=== PATIENT | female | born 1935 | race Caucasian/White ===

== ENCOUNTER 2017-12-07 15:19 | Inpatient (IN) ==
[2017-12-07] MEDS ORDERED: 0.9 % SODIUM CHLORIDE 1,000 ML IV ONE ×2 (15:40→17:41)
[2017-12-07] MEDS ORDERED: IPRATROPIUM/ALBUTEROL 3 ML AMPUL.NEB NEB ONE ×2 (15:47→20:08)
--- NOTE | 2017-12-07 15:47 | Emergency Department Note ---
Weakness HPI - General Chief complaint: Weakness Stated complaint: increase weakness, moist cough, fever Time Seen by Provider: 12/07/17 15:33 Source: patient Mode of arrival: EMS Limitations: no limitations - History of Present Illness HPI Narrative: 79-year-old female presents with decreased level of consciousness, weakness, fever, and increasing cough. She has COPD and Parkinson's disease. She is usually on 2-1/2-3 L at home and is now satting around 9091 on 4 L. She was doing well last night and ate but then started to decline. She had a fever today and EMS states it was 101.8 when they took it. She has had a wet cough for a long time but it has gotten worse in the last couple of days. She has not had a flu shot and people around her have had the flu. She has not urinated today very much. She did not have any p.o. intake as well. She states she is not in pain. She has Parkinson's disease a cannot open her eyes so it is hard to assess if she can open her eyes on command. She is not diabetic and does not have a history of CHF. She is DNR/DNI and family would like comfort measures such as fluids and antibiotics if needed. She is usually a pivot transfer but today she was not able to stand on her own. She usually talks to you better and she has not verbalizing very well. - Related Data Home Medications Medication Instructions Recorded Confirmed Budesonide [Pulmicort] 0.5 mg NEB DAILY 12/07/17 12/07/17 Carbidopa/Levodopa [Sinemet 25-100 2 each PO QIDP 12/07/17 12/07/17 mg Tablet] Furosemide [Lasix] 20 mg PO DAILY 12/07/17 12/07/17 Gabapentin [Neurontin] 100 mg PO QIDP 12/07/17 12/07/17 HYDROcodone/IBUPROFEN 0.5 tablet PO QIDP 12/07/17 12/07/17 [Hydrocodone-Ibuprofen 7.5-200] Iron Ps Cmplx/Vit B12/FA 1 each PO DAILY 12/07/17 12/07/17 [Poly-Iron 150 Forte Capsule] Levothyroxine [Synthroid] 75 mcg PO DAILY 12/07/17 12/07/17 Naproxen Sodium [Naprelan] 250 mg PO DAILY 12/07/17 12/07/17 Omeprazole [PriLOSEC] 20 mg PO DAILY 12/07/17 12/07/17 Potassium Chloride [Klor-Con 10 meq PO DAILY 12/07/17 12/07/17 Sprinkle] rOPINIRole HCL [Requip] 3 mg PO QIDP 12/07/17 12/07/17 Allergies Allergy/AdvReac Type Severity Reaction Status Date / Time Penicillins Allergy Intermediate Swelling Verified 12/07/17 15:22 Review of Systems All systems ED: reviewed and negative except as stated. Past Medical History - Past Medical History Medical history: Reports: COPD, other (parkinson's disease). 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 Absent: tenderness Extremities: Present: normal inspection. Absent: pedal edema Neurological: Present: alert, CN II-XII intact. Absent: oriented X3 Psychiatric: Present: flat affect Skin: Present: warm, dry, intact Course Course Narrative: influenza A positive She will be admitted to ICU. Patient was stable throughout stay Vital Signs Temperature 100.3 F H 12/07/17 15:28 Pulse Rate 93 H 12/07/17 15:28 Respiratory Rate 31 H 12/07/17 15:28 Blood Pressure 132/39 12/07/17 15:28 Pulse Oximetry (%) 92 12/07/17 15:28 Temperature 101.3 F H 12/07/17 17:12 Pulse Rate 95 H 12/07/17 20:31 Respiratory Rate 37 H 12/07/17 20:31 Blood Pressure 146/57 12/07/17 20:31 Pulse Oximetry (%) 95 12/07/17 20:31 Weakness - Lab Data Lab results reviewed: Yes I reviewed the patient's lab results. Result diagrams: 12/07/17 16:15 12/07/17 16:15 Lab Results 12/07/17 12/07/17 12/07/17 Range/Units 16:15 16:15 16:15 WBC 14.9 H (4.5-11.0) K/mcL RBC 3.93 L (4.00-5.20) M/mcL Hgb 11.5 L (12.0-15.0) g/dL Hct 34.5 L (36.0-48.0) % MCV 88.0 (80.0-100.0) fL MCH 29.3 (26.0-34.0) pg MCHC 33.3 (31.0-36.0) g/dL RDW 13.9 (11.5-14.5) % Plt Count 429 (140-440) K/mcL MPV 8.9 (7.4-10.4) fL Total Counted 100 Seg Neutrophils % 93 H (38-78) % Band Neutrophils % 1 (0-10) % Lymphocytes % 2 L (15-49) % Monocytes % (Manual) 4 (1-12) % Platelet Estimate Normal (NORMAL) RBC Morphology Normal (NORMAL) VBG Lactic Acid 2.5 H (0.5-2.2) mmol/L Sodium 136 (133-145) mmol/L Potassium 5.1 (3.3-5.1) mmol/L Chloride 99 (96-108) mmol/L Carbon Dioxide 19 L (22-30) mmol/L Anion Gap 18.0 H (8-16) BUN 19 (8-23) mg/dl Creatinine 1.5 H (0.6-1.1) mg/dl GFR Calculation 33 Glucose 170 H (70-105) mg/dL Calcium 8.7 (8.6-10.4) mg/dl Total Bilirubin 0.3 (0.0-1.0) mg/dL AST 76 H (0-37) U/l ALT < 5 (0-40) U/l Alkaline Phosphatase 103 (39-117) U/L NT-Pro-B Natriuret Pep 359.1 (0-450) pg/ml Total Protein 7.1 (5.9-8.4) gm/dL Albumin 3.6 (3.2-5.2) gm/dL Globulin 3.5 (2.2-3.7) gm/dL Albumin/Globulin Ratio 1.0 (1.0-2.3) Urine Color Urine Appearance Urine pH (5.0-9.0) Ur Specific [place] (1.000-1.035) Urine Protein (NEG) mg/dL Urine Glucose (UA) (NEG) mg/dL Urine Ketones (NEG) mg/dL Urine Occult Blood (<0.03) mg/dL Urine Nitrate (NEG) Urine Bilirubin (NEG) mg/dL Urine Urobilinogen (NEG) mg/dL Ur Leukocyte Esterase (NEG) /uL Urine RBC (0-1) /hpf Urine WBC (0-4) /hpf Ur Squamous Epith Cells (0-4) /hpf Urine Bacteria (0) /hpf Hyaline Casts (0-2) /lpf Urine Mucus (0) /hpf Ur Culture Indicated? 12/07/17 Range/Units 18:00 WBC (4.5-11.0) K/mcL RBC (4.00-5.20) M/mcL Hgb (12.0-15.0) g/dL Hct (36.0-48.0) % MCV (80.0-100.0) fL MCH (26.0-34.0) pg MCHC (31.0-36.0) g/dL RDW (11.5-14.5) % Plt Count (140-440) K/mcL MPV (7.4-10.4) fL Total Counted Seg Neutrophils % (38-78) % Band Neutrophils % (0-10) % Lymphocytes % (15-49) % Monocytes % (Manual) (1-12) % Platelet Estimate (NORMAL) RBC Morphology (NORMAL) VBG Lactic Acid (0.5-2.2) mmol/L Sodium (133-145) mmol/L Potassium (3.3-5.1) mmol/L Chloride (96-108) mmol/L Carbon Dioxide (22-30) mmol/L Anion Gap (8-16) BUN (8-23) mg/dl Creatinine (0.6-1.1) mg/dl GFR Calculation Glucose (70-105) mg/dL Calcium (8.6-10.4) mg/dl Total Bilirubin (0.0-1.0) mg/dL AST (0-37) U/l ALT (0-40) U/l Alkaline Phosphatase (39-117) U/L NT-Pro-B Natriuret Pep (0-450) pg/ml Total Protein (5.9-8.4) gm/dL Albumin (3.2-5.2) gm/dL Globulin (2.2-3.7) gm/dL Albumin/Globulin Ratio (1.0-2.3) Urine Color Yellow Urine Appearance Clear Urine pH 6.0 (5.0-9.0) Ur Specific [place] 1.017 (1.000-1.035) Urine Protein Neg (NEG) mg/dL Urine Glucose (UA) Negative (NEG) mg/dL Urine Ketones 5/tr A (NEG) mg/dL Urine Occult Blood Neg (<0.03) mg/dL Urine Nitrate Neg (NEG) Urine Bilirubin Neg (NEG) mg/dL Urine Urobilinogen Neg (NEG) mg/dL Ur Leukocyte Esterase Neg (NEG) /uL Urine RBC 1 (0-1) /hpf Urine WBC 1 (0-4) /hpf Ur Squamous Epith Cells 0 (0-4) /hpf Urine Bacteria 0 (0) /hpf Hyaline Casts 4 H (0-2) /lpf Urine Mucus Few (0) /hpf Ur Culture Indicated? No Disposition Pt seen by EDUCATION INSTRUCTOR/PA only: Yes Clinical Impression: Sepsis, Pneumonia and influenza Disposition: Xfer As Inpt ([facility]) Condition: Fair Referrals: Rubén Saunders ARNP [Primary Care Provider] -
[2017-12-07] MEDS ORDERED: ACETAMINOPHEN 1,000 MG/100 ML BOTTLE IV ONE (16:47)
[2017-12-07 16:55] LABS: Mean Corpuscular HGB Conc 33.3 g/dL (31.0-36.0); Mean Corpuscular Hemoglobin 29.3 pg (26.0-34.0); Platelet Count 429 K/mcL (140-440); RBC 3.93 M/mcL (4.00-5.20); Red Cell Distribution Width 13.9 % (11.5-14.5)
[2017-12-07 17:15] LABS: proBNP 359.1 pg/ml (0-450)
[2017-12-07 17:23] LABS: ALT/SGPT < 5 U/l (0-40); Albumin 3.6 gm/dL (3.2-5.2); Alkaline Phosphatase 103 U/L (39-117); Blood Urea Nitrogen 19 mg/dl (8-23)
[2017-12-07 17:30] LABS: Band Neutrophils % 1 % (0-10); Lymphocytes % 2 % (15-49); Monocytes % (Manual) 4 % (1-12); Platelet Estimate NORMAL (NORMAL); RBC Morphology NORMAL (NORMAL); Segmented Neutrophils % 93 % (38-78)
[2017-12-07] MEDS ORDERED: cefTRIAXone 1 GM VIAL IV ONE (17:30)
[2017-12-07 18:29] LABS: Appearance,Urine CLEAR; Bacteria,Urine 0 /hpf (0); Bilirubin,Urine NEG (NEG); Color,Urine YELLOW; Glucose,Urine (UA) NEGATIVE (NEG); Leukocyte Esterase,Urine NEG /uL (NEG); Mucus,Urine FEW /hpf (0); Protein,Urine NEG (NEG); Specific Gravity,Urine 1.017 (1.000-1.035); Urine Blood NEG mg/dL (<0.03); Urine Hyaline Cast 4 /lpf (0-2); Urine RBC 1 /hpf (0-1); Urine Squamous Epithelial Cell 0 /hpf (0-4); Urine WBC 1 /hpf (0-4); Urobilinogen,Urine NEG (NEG)
[2017-12-07] MEDS ORDERED: VANCOMYCIN 1,000 MG in 0.9 % SODIUM CHLORIDE 250 ML IV ONE (18:41)
--- NOTE | 2017-12-07 19:08 | Internal Med History&Physical ---
Medical - H&P: HPI Patient information: Note initiated : 12/07/17 at 7:01 pm Service Date, if different from initiated Date: [] Patient: Sanna Adame 79 y/o F admitted on for increase weakness, moist cough, fever. Chief Complaint: [] History of present illness: Ms. Adame is a 79 year old Female with h/o parkinsons disease, hypothyroidism presents to the ER, she has been living with her family at home and over the last 10 days has been progressively getting worse, the family notes that she has chr sinus issues and cough, but these have been getting worse since last week. Over the last 2 days they have noticed increased cough, which sounded wet cough. Chills and rigors. They have also noted increased weakness and poor appetite and decreased level of activity. The patient also possibly had a fever. She was therefore brought to the ER for further management. The patient has Parkinson disease which has been progressively getting worse, the patient is predominancy in the bed and sits in recliner, uses diaper, is hard of hearing, uses the toilet. The patient can let her needs be known. She has difficulty in swallowing and needs meds to be crushed in apple sauce to be fed In the ER the patient on presentation had fever, Chest x ray suggestive of pna, she had leucocytosis, elevated lactic acid at 2.5, she was hypoxic requiring 4L oxyegn (uses 2-3 at home?), she is tachypneic with RR 30, bp was low systolic dropped to 80 systolic, but improved with fluids in the 100s The patients has been daignosed with influenza a and is under treatment , pt is neg for same, patient daughter and present at the bed side, and the is DNR as per advance directive, but ok for fluids, pressors, bipap if needed. Patient will be admitted to tele for further management. poor iv access noted, plan to get PICC line ROS unobtainable: due to mental status Medical - H&P: PMH Medical history: Hypothyroidism chr back pain Parkinsons diasese Edema feet Hypokalemia Surgical history: laminectemy hystrectemy rectal prolapse/ surgery/ complications from same Family history: reviewed and not pertinent Social history: lives home with , non smoker no etoh no recreational substance use. Medical - H&P: Meds Home Medications Medication Instructions Recorded Confirmed Type Budesonide [Pulmicort] 0.5 mg NEB DAILY 12/07/17 12/07/17 History Carbidopa/Levodopa [Sinemet 25-100 2 each PO QIDP 12/07/17 12/07/17 History mg Tablet] Furosemide [Lasix] 20 mg PO DAILY 12/07/17 12/07/17 History Gabapentin [Neurontin] 100 mg PO QIDP 12/07/17 12/07/17 History HYDROcodone/IBUPROFEN 0.5 tablet PO QIDP 12/07/17 12/07/17 History [Hydrocodone-Ibuprofen 7.5-200] Iron Ps Cmplx/Vit B12/FA 1 each PO DAILY 12/07/17 12/07/17 History [Poly-Iron 150 Forte Capsule] Levothyroxine [Synthroid] 75 mcg PO DAILY 12/07/17 12/07/17 History Naproxen Sodium [Naprelan] 250 mg PO DAILY 12/07/17 12/07/17 History Omeprazole [PriLOSEC] 20 mg PO DAILY 12/07/17 12/07/17 History Potassium Chloride [Klor-Con 10 meq PO DAILY 12/07/17 12/07/17 History Sprinkle] rOPINIRole HCL [Requip] 3 mg PO QIDP 12/07/17 12/07/17 History Allergies Allergy/AdvReac Type Severity Reaction Status Date / Time Penicillins Allergy Intermediate Swelling Verified 12/07/17 15:22 Medical - H&P: Exam - Constitutional Vitals: Temp Pulse Resp BP Pulse Ox 101.3 F H 89 30 H 99/40 91 12/07/17 17:12 12/07/17 18:31 12/07/17 18:31 12/07/17 18:31 12/07/17 18:31 Exam: GENERAL: The patient is a well-developed, well-nourished in mild resp disterss , breathing at 30, Is alert and oriented x3. VITAL SIGNS: Reviewed and as noted elsewhere. HEENT: Head is normocephalic and atraumatic. legally blind, eyes remained close during exam . Pupils are equal, round, and reactive to light. Nares appeared normal. Mouth appears any without lesions. Mucous membranes are dry. she is very hard of hearing, and speech is difficult to understand. NECK: Normal to inspection, Supple, No lymphadenopathy or thyromegaly. LUNGS: Air entry equal on both sides, no wheezing, has bibasilar crackles, right > left. HEART: Regular rate and rhythm normal, S1 and S2 heard, no Gallop, S3 or Rub Noted, No Gross murmur heard. ABDOMEN: Soft, nontender, and nondistended. Positive bowel sounds. No hepatosplenomegaly was noted. EXTREMITIES: No cyanosis, clubbing, rash, lesions, no edema. NEUROLOGIC: Cranial nerves II through XII are grossly intact. Motor and Sensory System Grossly Intact. PSYCHIATRIC: sleepy and confused. SKIN: No ulceration or wounds noted, No jaundice, No rash noted. Medical - H&P: Reslt - Labs CBC & Chem 7: 12/07/17 16:15 12/07/17 16:15 Labs: Short CBC 12/07/17 Range/Units 16:15 WBC 14.9 H (4.5-11.0) K/mcL Hgb 11.5 L (12.0-15.0) g/dL Hct 34.5 L (36.0-48.0) % Plt Count 429 (140-440) K/mcL BMP 12/07/17 16:15 Sodium 136 Potassium 5.1 Chloride 99 Carbon Dioxide 19 L BUN 19 Creatinine 1.5 H Glucose 170 H Calcium 8.7 Liver Function 12/07/17 Range/Units 16:15 Total Bilirubin 0.3 (0.0-1.0) mg/dL AST 76 H (0-37) U/l ALT < 5 (0-40) U/l Alkaline Phosphatase 103 (39-117) U/L Albumin 3.6 (3.2-5.2) gm/dL Urine 12/07/17 Range/Units 18:00 Urine Color Yellow Urine Appearance Clear Urine pH 6.0 (5.0-9.0) Ur Specific [place] 1.017 (1.000-1.035) Urine Protein Neg (NEG) mg/dL Urine Glucose (UA) Negative (NEG) mg/dL Medical - H&P: A/P - Narrative A/P Narrative: A/P Septic Shock : Patient with low bp, elevated lactate acidosis, tachypenia, likely from pna, IV bolus fluid for now, trend lactic acid, IV levophed if needed. try to keep MAP > 65 Pneumonia, : Patient family has h/o influenza, treat with IV vanco, rocephin and flagyl. Vanco for mrsa coverage given possibity of flu, and given high risk of aspiration flagyl added. Influenza: Flu test is neg, but given family member has flu positive, will treat empherically Acute renal failure: creat is 1.5, IV fluids for now, monitor urine output. Parkinsons disease: Resume home meds, hopefully will regain some motor functions. Weakness/ Debility: due to infection, OT/PT and ST eval and treat Patient has a high risk of mortality, patient famil updated on the condition, and they verbalize understanding DVT hep sq Diet Dysphagia diet, ST eval DNR code status.
[2017-12-07] MEDS ORDERED: cefTRIAXone 2 GM in DEXTROSE 5% IN WATER 50 ML IV SCH (21:43)
[2017-12-07] MEDS ORDERED: OSELTAMIVIR PHOSPHATE 75 MG CAPSULE PO SCH (21:43)
[2017-12-07] MEDS ORDERED: ROPINIROLE HCL 3 MG PO SCH (21:43)
[2017-12-07] MEDS ORDERED: ONDANSETRON 4 MG/2 ML VIAL IV PRN (21:43)
[2017-12-07] MEDS ORDERED: NOREPINEPHRINE BITARTRATE 16 MG in 0.9 % SODIUM CHLORIDE 234 ML IV SCH (21:43)
[2017-12-07] MEDS ORDERED: GABAPENTIN 100 MG CAPSULE PO SCH (21:43)
[2017-12-07] MEDS ORDERED: ACETAMINOPHEN 325 MG TABLET PO PRN (21:43)
[2017-12-07] MEDS ORDERED: HYDROCODONE PO SCH (21:43)
[2017-12-07] MEDS ORDERED: IBUPROFEN PO SCH (21:43)
[2017-12-07] MEDS ORDERED: VANCOMYCIN PER PHARMACY IV ONE (21:43)
[2017-12-07] MEDS ORDERED: 0.9 % SODIUM CHLORIDE 10 ML SYRINGE IV PRN (21:43)
[2017-12-07] MEDS ORDERED: [UNRECOGNIZED DRUG - OTHER] PO SCH (21:43)
[2017-12-07] MEDS ORDERED: MAGNESIUM HYDROXIDE 30 ML ORAL.SUSP PO PRN (21:43)
[2017-12-07] MEDS ORDERED: NALOXONE HCL 0.4 MG/ML VIAL IV PRN (21:43)
[2017-12-07] MEDS ORDERED: metroNIDAZOLE 500 MG/100 ML BAG IV SCH ×2 (21:43→22:00)
[2017-12-07] MEDS: DEXTROSE 5%-1/2NS 1,000 ML IV SCH (22:04)
[2017-12-07] MEDS ORDERED: cefTRIAXone 1 GM VIAL ONE (22:17)
[2017-12-07] MEDS ORDERED: HYDROmorphone 2 MG/ML VIAL ONE (22:23)
[2017-12-07] MEDS: FAMOTIDINE/PF 20 MG/2 ML VIAL IV SCH (23:44)
[2017-12-07] MEDS: HEPARIN 5,000 UNIT/ML VIAL SQ SCH (23:45)
[2017-12-07] MEDS: methylPREDNISolone SOD SUCC 125 MG/2 ML VIAL IV SCH (23:45)
[2017-12-07] MEDS: OSELTAMIVIR PHOSPHATE 75 MG CAPSULE PO SCH (23:46)
[2017-12-07] MEDS: rOPINIRole 1 MG TABLET PO SCH (23:46)
[2017-12-07] MEDS: 0.9 % SODIUM CHLORIDE 250 ML IV SCH (23:50)
[2017-12-07] MEDS ORDERED: HYDROmorphone 2 MG/ML VIAL IV PRN (23:51)
[2017-12-07] MEDS: 0.9 % SODIUM CHLORIDE 10 ML SYRINGE IV SCH (23:57)
[2017-12-07] MEDS: metroNIDAZOLE 500 MG/100 ML BAG IV SCH (23:57)
[2017-12-07] MEDS: IPRATROPIUM/ALBUTEROL 3 ML AMPUL.NEB NEB SCH (23:59)
[2017-12-08] MEDS: IPRATROPIUM/ALBUTEROL 3 ML AMPUL.NEB NEB SCH ×4 (01:47→19:20)
[2017-12-08 06:41] LABS: Basophils # (Auto) 0 K/mcL (0.0-0.3); Basophils % (Auto) 0 % (0.0-2.0); Eosinophils # (Auto) 0 K/mcL (0.0-0.7); Eosinophils % (Auto) 0 % (0.0-7.0); Granulocytes % (Auto) 96.5 % (38.0-78.0); Lymphocytes # (Auto) 0.3 K/mcL (1.5-4.8); Lymphocytes % (Auto) 2.2 % (15.5-49.0); Mean Cell Volume 89.5 fL (80.0-100.0); Mean Corpuscular HGB Conc 32.7 g/dL (31.0-36.0); Mean Corpuscular Hemoglobin 29.3 pg (26.0-34.0); Monocytes # (Auto) 0.2 K/mcL (0.1-0.9); Monocytes % (Auto) 1.3 % (1.0-12.0); Platelet Count 350 K/mcL (140-440); RBC 3.53 M/mcL (4.00-5.20); Red Cell Distribution Width 14.2 % (11.5-14.5)
[2017-12-08 06:53] LABS: ALT/SGPT 7 U/l (0-40); Albumin 3.1 gm/dL (3.2-5.2); Albumin/Globulin Ratio 0.9 (1.0-2.3); Alkaline Phosphatase 91 U/L (39-117); Bilirubin,Direct < 0.2 mg/dL (0.0-0.3); Blood Urea Nitrogen 17 mg/dl (8-23); Gamma Glutamyl Transpeptidase 38 U/L (5-36); Uric Acid 6.7 mg/dL (2.5-8.0)
--- NOTE | 2017-12-08 07:37 | XRay Report ---
CLINICAL INFORMATION: Fever and shortness of breath COMPARISON: None. FINDINGS: Mild cardiomegaly is appreciated. Mediastinum is unremarkable. Pulmonary vessels are mildly distended and there is mild interstitial edema. Mild bibasilar airspace disease likely represents atelectasis small bilateral pleural effusions noted IMPRESSION: Mild CHF or volume overload Mild bibasilar atelectasis Interpreted and Authenticated by: Diego Li 12/08/17
--- NOTE | 2017-12-08 07:41 | XRay Report ---
CLINICAL INFORMATION: Reason for Exam:PICC PLACEMENT COMPARISON: 12/07/2017 1700 hours FINDINGS: Right PICC line tip overlies the tricuspid valve plane. Mild cardiomegaly unchanged. Mediastinum is unremarkable. Pulmonary vessels are mildly distended and there is mild interstitial edema throughout both lungs. IMPRESSION: Moderate CHF PICC line tip overlies the tricuspid valve plane and should be withdrawn 5 cm Interpreted and Authenticated by: Diego Li 12/08/17
[2017-12-08] MEDS: BUDESONIDE 0.5 MG/2 ML AMPUL.NEB NEB SCH (07:50)
[2017-12-08] MEDS: 0.9 % SODIUM CHLORIDE 10 ML SYRINGE IV SCH ×2 (07:54→20:33)
[2017-12-08] MEDS: metroNIDAZOLE 500 MG/100 ML BAG IV SCH ×3 (07:54→22:14)
[2017-12-08] MEDS: methylPREDNISolone SOD SUCC 125 MG/2 ML VIAL IV SCH ×3 (08:10→22:15)
[2017-12-08] MEDS: rOPINIRole 1 MG TABLET PO SCH ×4 (08:46→20:32)
[2017-12-08] MEDS: LEVOTHYROXINE 75 MCG TABLET PO SCH (08:46)
[2017-12-08] MEDS: POTASSIUM CHLORIDE 10 MEQ TABLET PO SCH (08:46)
[2017-12-08] MEDS: OSELTAMIVIR PHOSPHATE 75 MG CAPSULE PO SCH (08:46)
[2017-12-08] MEDS ORDERED: [UNRECOGNIZED DRUG - OTHER] PO SCH (09:00)
[2017-12-08] MEDS ORDERED: IRON PS CMPLX PO SCH (09:00)
[2017-12-08] MEDS ORDERED: VIT B12 PO SCH (09:00)
[2017-12-08] MEDS: HEPARIN 5,000 UNIT/ML VIAL SQ SCH ×2 (09:03→20:29)
[2017-12-08] MEDS: FAMOTIDINE/PF 20 MG/2 ML VIAL IV SCH ×2 (09:03→20:32)
[2017-12-08] MEDS: CARBIDOPA/LEVODOPA 25/100 TABLET PO SCH ×4 (09:47→20:33)
[2017-12-08] MEDS: DEXTROSE 5%-1/2NS 1,000 ML IV SCH (09:48)
[2017-12-08] MEDS: 0.9 % SODIUM CHLORIDE 250 ML IV SCH ×2 (11:13→23:43)
--- NOTE | 2017-12-08 11:29 | Internal Med Progress Note ---
Medical - PN: Subj Patient information: Note initiated : 12/08/17 at 11:24 am Service Date, if different from initiated Date: [] Patient: Sanna Adame 79 y/o F admitted on 12/07/17 for increase weakness, moist cough, fever. Chief Complaint: [] Interval history: Ms. Adame is a 79 year old Female with h/o parkinsons disease, hypothyroidism presents to the ER, she has been living with her family at home and over the last 10 days has been progressively getting worse, the family notes that she has chr sinus issues and cough, but these have been getting worse since last week. Over the last 2 days they have noticed increased cough, which sounded wet cough. Chills and rigors. They have also noted increased weakness and poor appetite and decreased level of activity. The patient also possibly had a fever. She was therefore brought to the ER for further management. The patient has Parkinson disease which has been progressively getting worse, the patient is predominancy in the bed and sits in recliner, uses diaper, is hard of hearing, uses the toilet. The patient can let her needs be known. She has difficulty in swallowing and needs meds to be crushed in apple sauce to be fed In the ER the patient on presentation had fever, Chest x ray suggestive of pna, she had leucocytosis, elevated lactic acid at 2.5, she was hypoxic requiring 4L oxyegn (uses 2-3 at home?), she is tachypneic with RR 30, bp was low systolic dropped to 80 systolic, but improved with fluids in the 100s The patients has been daignosed with influenza a and is under treatment , pt is neg for same, patient daughter and present at the bed side, and the is DNR as per advance directive, but ok for fluids, pressors, bipap if needed. Patient will be admitted to tele for further management. poor iv access noted, plan to get PICC line Dec 08 patient seen examined, non verbal still no acute overnight issues wbc still high, but lactic acid is now normal, hr stable, breathing better On IV antibiotics which will continue for now. Pertinent ROS: unable. - Constitutional Vitals: Vital Signs Temp Pulse Resp BP Pulse Ox 97.9 F 88 26 H 127/49 94 12/08/17 07:51 12/08/17 07:58 12/08/17 07:58 12/08/17 07:51 12/08/17 07:58 Period Temp Pulse Resp BP Sys/Gonzalez Pulse Ox Last 24 Hr 97.9 F-101.3 F 83-98 16-37 82-146/33-71 89-98 Intake and Output 12/07/17 12/08/17 12/08/17 21:59 05:59 13:59 Intake Total 2350 / 2350 150 / 150 976 / 976 Output Total 200 / 200 850 / 850 Balance 2150 / 2150 -700 / -700 976 / 976 Weight 155 lb 14.4 oz Intake & Output: Intake & Output 12/07/17 12/08/17 12/08/17 21:59 05:59 13:59 Intake Total 2350 / 2350 150 / 150 976 / 976 Output Total 200 / 200 850 / 850 Balance 2150 / 2150 -700 / -700 976 / 976 Weight 155 lb 14.4 oz Intake: IV 2350 / 2350 150 / 150 976 / 976 Sodium Chloride 0.9% 1,000 ml @ 1999 / 1999 Wide Open IV BOLUS ONE Rx#: [id number] Dextrose 5%-1/2Ns IV Solution 1 876 / 876 ,000 ml @ 84 mls/hr IV .[id number] [facility] Rx#:[id number] Vancomycin 1,000 mg In Sodium 250 / 250 Chloride 0.9% 250 ml @ 250 mls/ hr IV ONCE ONE Rx#:[id number] Output: Urine Catheter Amount 850 / 850 Void Amount 200 / 200 Uretheral (Norris) 200 / 200 Exam: Constitutional; Afebrile, sleepy Eyes-, , No periorbital swelling Ears- Ext ear normal, Neck- Midline trachea, supple Respiratory system: Air Entry equal on both sides, barry exp wheezing mild, better air entry today. CVS- Rate rhythm regular, S1,S2 heard, no gallop, no rub. Abdomen- Soft nontender abdomen, no organomegaly, no tenderness, no guarding or rigidity, DATA NETWORK ARCHITECT- AOOx1, moving all extremities, no gross focal deficit noted. Medical - PN: Obj Da - Labs CBC & Chem 7: 12/08/17 04:00 12/08/17 04:00 Labs: Abnormal Lab Results 0112/[id number] 12/07/17 04:00 04:00 21:55 WBC 14.3 H RBC 3.53 L Hgb 10.3 L Hct 31.6 L Gran % 96.5 H Lymph % (Auto) 2.2 L Gran # 13.8 H Lymph # (Auto) 0.3 L Seg Neutrophils % Lymphocytes % VBG Lactic Acid 2.4 H Carbon Dioxide 18 L Anion Gap Creatinine 1.2 H Glucose 214 H Calcium 8.0 L GGT 38 H AST 54 H Albumin 3.1 L Albumin/Globulin Ratio 0.9 L Urine Ketones Hyaline Casts 12/07/17 12/07/17 12/07/17 18:00 16:15 16:15 WBC RBC Hgb Hct Gran % Lymph % (Auto) Gran # Lymph # (Auto) Seg Neutrophils % Lymphocytes % VBG Lactic Acid 2.5 H Carbon Dioxide 19 L Anion Gap 18.0 H Creatinine 1.5 H Glucose 170 H Calcium GGT AST 76 H Albumin Albumin/Globulin Ratio Urine Ketones 5/tr A Hyaline Casts 4 H 12/07/17 16:15 WBC 14.9 H RBC 3.93 L Hgb 11.5 L Hct 34.5 L Gran % Lymph % (Auto) Gran # Lymph # (Auto) Seg Neutrophils % 93 H Lymphocytes % 2 L VBG Lactic Acid Carbon Dioxide Anion Gap Creatinine Glucose Calcium GGT AST Albumin Albumin/Globulin Ratio Urine Ketones Hyaline Casts Meds: Medications Acetaminophen (Tylenol) 650 mg PO Q6HP PRN PRN Reason: PAIN/FEVER > 101 Albuterol/Ipratropium (Duoneb) 3 ml NEB Q6HRT [facility] Last Admin: 12/08/17 07:50 Dose: 3 ml Budesonide (Pulmicort) 0.5 mg NEB DAILY [facility] Last Admin: 12/08/17 07:50 Dose: 0.5 mg Carbidopa/Levodopa (Sinemet 25/100) 1 tab PO QID [facility] Last Admin: 12/08/17 09:47 Dose: 1 tab Famotidine (Pepcid) 20 mg IV Q12 [facility] Last Admin: 12/08/17 09:03 Dose: 20 mg Gabapentin (Neurontin) 100 mg PO QIDP [facility] Heparin Sodium (Porcine) (Heparin) 5,000 unit SQ Q12 [facility] Last Admin: 12/08/17 09:03 Dose: 5,000 unit Heparin Sodium (Porcine) (Heparin Flush) 2 ml IV Q12 [facility] Last Admin: 12/08/17 09:03 Dose: 2 ml Hydromorphone HCl (Dilaudid) 0 mg IV Q4HP PRN PRN Reason: PAIN LEVEL > 6 Ceftriaxone Sodium 2 gm/ (Dextrose) 50 mls @ 100 mls/hr IV Q24H [facility] Last Infusion: 12/08/17 03:51 Dose: Infused Dextrose/Sodium Chloride (Dextrose 5%-1/2ns Iv Solution) 1,000 mls @ 84 mls/hr IV .[id number] [facility] Stop: 12/08/17 21:31 Last Admin: 12/08/17 09:48 Dose: Not Given Norepinephrine Bitartrate 16 (mg/ Sodium Chloride) 250 mls @ 9.37 mls/hr IV Q24H [facility]; 10 MCG/MIN PRN Reason: Protocol Last Admin: 12/07/17 23:46 Dose: Not Given Sodium Chloride (Sodium Chloride 0.9%) 250 mls @ 20 mls/hr IV .[id number] [facility] Last Admin: 12/08/17 11:13 Dose: Not Given Metronidazole (Flagyl) 500 mg in 100 mls @ 100 mls/hr IV Q8H [facility] Last Infusion: 12/08/17 08:54 Dose: Infused Levothyroxine Sodium (Synthroid) 75 mcg PO ACB [facility] Last Admin: 12/08/17 08:46 Dose: 75 mcg Magnesium Hydroxide (Milk Of Magnesia) 30 ml PO DAILYP PRN PRN Reason: Constipation Methylprednisolone Sodium Succinate (Solu-Medrol) 62.5 mg IV Q8 [facility] Last Admin: 12/08/17 08:10 Dose: 62.5 mg Naloxone HCl (Narcan) 0.1 mg IV Q2MIN PRN PRN Reason: Opiate Reversal Non-Formulary Medication (Hydrocodone/Ibuprofen [Hydrocodone-Ibuprofen 7.5-200] ) 0.5 tablet PO QIDP [facility] Non-Formulary Medication (Iron Ps Cmplx/Vit B12/Fa [Poly-Iron 150 Forte Capsule] ) 1 each PO DAILY [facility] Last Admin: 12/08/17 09:04 Dose: Not Given Ondansetron HCl (Zofran) 4 mg IV Q4HP PRN PRN Reason: Nausea And Vomiting Oseltamivir Phosphate (Tamiflu) 75 mg PO DAILY [facility] Last Admin: 12/08/17 08:46 Dose: 75 mg Potassium Chloride (Kdur) 10 meq PO QAMCC [facility] Last Admin: 12/08/17 08:46 Dose: 10 meq Ropinirole HCl (Requip) 3 mg PO QID [facility] Last Admin: 12/08/17 08:46 Dose: 3 mg Sodium Chloride (Saline Flush) 10 ml IV UD PRN PRN Reason: FLUSH Sodium Chloride (Saline Flush) 10 ml IV Q12 [facility] Last Admin: 12/08/17 07:54 Dose: 10 ml Medical - PN: A/P - Time Spent With Patient Total time spent is greater than 50% in coordination of care (as documented) at patient's floor/unit and/or counseling patient: - Narrative A/P Narrative: A/P Septic Shock : improved, lactic acid normal, bp stable, monitor. Pneumonia, : Patient family has h/o influenza, treat with IV vanco, rocephin and flagyl. Vanco for mrsa coverage given possibity of flu, and given high risk of aspiration flagyl added. X ray noted, Influenza: Flu test is neg, but given family member has flu positive, will treat empherically Acute renal failure: creat is improving, its 1.2 today, d/c IVF given possible congestion on X Ray. Parkinsons disease: Resume home meds, hopefully will regain some motor functions. Weakness/ Debility: due to infection, OT/PT and ST eval and treat Patient has a high risk of mortality, patient family aware on the condition, and they verbalize understanding DVT hep sq Diet Dysphagia diet, ST eval DNR code status. Medical - PN: Qual - VTE Deep Vein Thrombosis/Pulmonary Embolism Present on Admission: No
[2017-12-08] MEDS: IRON POLYSACCHARIDE COMPLEX 150 MG CAPSULE PO SCH (15:38)
[2017-12-08] MEDS ORDERED: NOREPINEPHRINE BITARTRATE 16 MG in 0.9 % SODIUM CHLORIDE 234 ML IV PRN (16:00)
[2017-12-08] MEDS: cefTRIAXone 2 GM VIAL IV SCH (22:15)
[2017-12-09] MEDS: IPRATROPIUM/ALBUTEROL 3 ML AMPUL.NEB NEB SCH ×4 (02:01→19:28)
[2017-12-09] MEDS: metroNIDAZOLE 500 MG/100 ML BAG IV SCH (05:17)
[2017-12-09] MEDS: methylPREDNISolone SOD SUCC 125 MG/2 ML VIAL IV SCH ×2 (05:18→13:51)
[2017-12-09 05:36] LABS: Basophils # (Auto) 0 K/mcL (0.0-0.3); Basophils % (Auto) 0 % (0.0-2.0); Eosinophils # (Auto) 0 K/mcL (0.0-0.7); Eosinophils % (Auto) 0 % (0.0-7.0); Lymphocytes # (Auto) 0.5 K/mcL (1.5-4.8); Lymphocytes % (Auto) 4.3 % (15.5-49.0); Mean Cell Volume 89.9 fL (80.0-100.0); Mean Corpuscular HGB Conc 32.3 g/dL (31.0-36.0); Mean Corpuscular Hemoglobin 29.1 pg (26.0-34.0); Monocytes # (Auto) 0.2 K/mcL (0.1-0.9); Monocytes % (Auto) 1.7 % (1.0-12.0); Platelet Count 344 K/mcL (140-440); RBC 3.67 M/mcL (4.00-5.20)
[2017-12-09 06:11] LABS: ALT/SGPT < 5 U/l (0-40); Albumin 3.1 gm/dL (3.2-5.2); Albumin/Globulin Ratio 0.9 (1.0-2.3); Alkaline Phosphatase 95 U/L (39-117); Bilirubin,Direct < 0.2 mg/dL (0.0-0.3); Blood Urea Nitrogen 16 mg/dl (8-23); Gamma Glutamyl Transpeptidase 39 U/L (5-36); Uric Acid 6.2 mg/dL (2.5-8.0)
[2017-12-09] MEDS: BUDESONIDE 0.5 MG/2 ML AMPUL.NEB NEB SCH (07:51)
[2017-12-09] MEDS: FAMOTIDINE/PF 20 MG/2 ML VIAL IV SCH ×2 (08:36→20:00)
[2017-12-09] MEDS: POTASSIUM CHLORIDE 10 MEQ TABLET PO SCH (08:36)
[2017-12-09] MEDS: LEVOTHYROXINE 75 MCG TABLET PO SCH (08:36)
[2017-12-09] MEDS: HEPARIN 5,000 UNIT/ML VIAL SQ SCH ×2 (08:37→20:00)
[2017-12-09] MEDS: rOPINIRole 1 MG TABLET PO SCH ×4 (08:37→20:00)
[2017-12-09] MEDS: OSELTAMIVIR PHOSPHATE 75 MG CAPSULE PO SCH (08:37)
[2017-12-09] MEDS: IRON POLYSACCHARIDE COMPLEX 150 MG CAPSULE PO SCH (08:38)
--- NOTE | 2017-12-09 08:51 | XRay Report ---
HISTORY: Reason for Exam:shortness of breath fever, cough and weakness FINDINGS: There are prominent increased lung markings bilaterally. The greatest involvement is in the right lower lobe. There has been mild improvement in the right upper lobe since 12/07/17. Lung volumes are normal. There is no evidence of adenopathy or pleural effusion. The heart size is normal and has diminished in size since 12/07/17. The PICC line has been removed. There is no pneumothorax. IMPRESSION: Nonspecific interstitial lung disease bilaterally. This could be due to inflammation, fibrosis or combination of the two. This is less likely due to congestive heart failure since the heart is now relatively small Interpreted and Authenticated by: Anderson Reina 12/09/17
[2017-12-09] MEDS: 0.9 % SODIUM CHLORIDE 10 ML SYRINGE IV SCH ×3 (10:16→20:00)
[2017-12-09] MEDS: CARBIDOPA/LEVODOPA 25/100 TABLET PO SCH ×4 (10:17→20:00)
[2017-12-09] MEDS: cefTRIAXone 2 GM VIAL IV SCH (12:32)
--- NOTE | 2017-12-09 12:51 | Internal Med Progress Note ---
Medical - PN: Subj Patient information: Note initiated : 12/09/17 at 12:49 pm Service Date, if different from initiated Date: [] Patient: Sanna Adame 79 y/o F admitted on 12/07/17 for Increase Weakness, Moist Cough, Fever/Sepsis, PNA. Chief Complaint: [] Interval history: Ms. Adame is a 79 year old Female with h/o parkinsons disease, hypothyroidism presents to the ER, she has been living with her family at home and over the last 10 days has been progressively getting worse, the family notes that she has chr sinus issues and cough, but these have been getting worse since last week. Over the last 2 days they have noticed increased cough, which sounded wet cough. Chills and rigors. They have also noted increased weakness and poor appetite and decreased level of activity. The patient also possibly had a fever. She was therefore brought to the ER for further management. The patient has Parkinson disease which has been progressively getting worse, the patient is predominancy in the bed and sits in recliner, uses diaper, is hard of hearing, uses the toilet. The patient can let her needs be known. She has difficulty in swallowing and needs meds to be crushed in apple sauce to be fed In the ER the patient on presentation had fever, Chest x ray suggestive of pna, she had leucocytosis, elevated lactic acid at 2.5, she was hypoxic requiring 4L oxyegn (uses 2-3 at home?), she is tachypneic with RR 30, bp was low systolic dropped to 80 systolic, but improved with fluids in the 100s The patients has been daignosed with influenza a and is under treatment , pt is neg for same, patient daughter and present at the bed side, and the is DNR as per advance directive, but ok for fluids, pressors, bipap if needed. Patient will be admitted to tele for further management. poor iv access noted, plan to get PICC line Dec 08 patient seen examined, non verbal still no acute overnight issues wbc still high, but lactic acid is now normal, hr stable, breathing better On IV antibiotics which will continue for now. dec 09 Patient seen examined Patient confused overnight, removed her picc line, new peripheral line placed patient wbc improving chemistry stable x ray shows Nonspecific interstitial lung disease bilaterally. This could be due to inflammation, fibrosis or combination of the two. This is less likely due to congestive heart failure since the heart is now relatively small. Pertinent ROS: unable due to mental status. - Constitutional Vitals: Vital Signs Temp Pulse Resp BP Pulse Ox 97.4 F 83 30 H 130/52 95 12/09/17 00:03 12/09/17 10:01 12/09/17 10:01 12/09/17 10:01 12/09/17 10:01 Period Temp Pulse Resp BP Sys/Gonzalez Pulse Ox Last 24 Hr 97.4 F-99.4 F 73-89 20-30 126-144/52-60 92-97 Intake and Output 12/08/17 12/09/17 12/09/17 21:59 05:59 13:59 Intake Total 310 / 310 100 / 100 100 / 100 Output Total 900 / 900 950 / 950 Balance -590 / -590 -850 / -850 100 / 100 Weight 158 lb 1.6 oz Intake & Output: Intake & Output 12/08/17 12/09/17 12/09/17 21:59 05:59 13:59 Intake Total 310 / 310 100 / 100 100 / 100 Output Total 900 / 900 950 / 950 Balance -590 / -590 -850 / -850 100 / 100 Weight 158 lb 1.6 oz Intake: IV 100 / 100 100 / 100 100 / 100 Oral 210 / 210 Output: Urine Catheter Amount 900 / 900 950 / 950 Other: Meal Dinner Percent of Meal Consumed 100% Feeding Ability Total Assistance # Bowel Movements 1 Exam: Constitutional; Afebrile, confused Eyes- No icterus, , No periorbital swelling Ears- Ext ear normal, hearing very hard to conversation. Neck- Midline trachea, supple Respiratory system: Air Entry equal on both sides, barry basilar crackles, minimal wheeze, CVS- Rate rhythm regular, S1,S2 heard, no gallop, no rub. Abdomen- Soft nontender abdomen, no organomegaly, no tenderness, no guarding or rigidity, [employer]- AOOx1, moving all extremities, no gross focal deficit noted. Medical - PN: Obj Da - Labs CBC & Chem 7: 12/09/17 04:00 12/09/17 04:00 Labs: Abnormal Lab Results 12/09/17 12/09/17 12/08/17 04:00 04:00 04:00 WBC 12.4 H RBC 3.67 L Hgb 10.7 L Hct 33.0 L Gran % 94.0 H Lymph % (Auto) 4.3 L Gran # 11.7 H Lymph # (Auto) 0.5 L Seg Neutrophils % Lymphocytes % VBG Lactic Acid Carbon Dioxide 19 L 18 L Anion Gap Creatinine 1.2 H Glucose 191 H 214 H Calcium 8.4 L 8.0 L Phosphorus 2.6 L GGT 39 H 38 H AST 45 H 54 H Albumin 3.1 L 3.1 L Albumin/Globulin Ratio 0.9 L 0.9 L Urine Ketones Hyaline Casts 12/08/17 12/07/17 12/07/17 04:00 21:55 18:00 WBC 14.3 H RBC 3.53 L Hgb 10.3 L Hct 31.6 L Gran % 96.5 H Lymph % (Auto) 2.2 L Gran # 13.8 H Lymph # (Auto) 0.3 L Seg Neutrophils % Lymphocytes % VBG Lactic Acid 2.4 H Carbon Dioxide Anion Gap Creatinine Glucose Calcium Phosphorus GGT AST Albumin Albumin/Globulin Ratio Urine Ketones 5/tr A Hyaline Casts 4 H 12/07/17 12/07/17 12/07/17 16:15 16:15 16:15 WBC 14.9 H RBC 3.93 L Hgb 11.5 L Hct 34.5 L Gran % Lymph % (Auto) Gran # Lymph # (Auto) Seg Neutrophils % 93 H Lymphocytes % 2 L VBG Lactic Acid 2.5 H Carbon Dioxide 19 L Anion Gap 18.0 H Creatinine 1.5 H Glucose 170 H Calcium Phosphorus GGT AST 76 H Albumin Albumin/Globulin Ratio Urine Ketones Hyaline Casts Meds: Medications Acetaminophen (Tylenol) 650 mg PO Q6HP PRN PRN Reason: PAIN/FEVER > 101 Hydrocodone Bitart/Acetaminophen ([place] 5/325mg) 1 tab PO QIDP PRN PRN Reason: Pain Albuterol/Ipratropium (Duoneb) 3 ml NEB Q6HRT [facility] Last Admin: 12/09/17 07:51 Dose: 3 ml Budesonide (Pulmicort) 0.5 mg NEB DAILY [facility] Last Admin: 12/09/17 07:51 Dose: 0.5 mg Carbidopa/Levodopa (Sinemet 25/100) 1 tab PO QID [facility] Last Admin: 12/09/17 12:32 Dose: 1 tab Ceftriaxone Sodium (Rocephin) 2 gm IV DAILY [facility] Last Admin: 12/09/17 12:32 Dose: 2 gm Famotidine (Pepcid) 20 mg IV Q12 [facility] Last Admin: 12/09/17 08:36 Dose: 20 mg Gabapentin (Neurontin) 100 mg PO QIDP [facility] Heparin Sodium (Porcine) (Heparin) 5,000 unit SQ Q12 [facility] Last Admin: 12/09/17 08:37 Dose: 5,000 unit Heparin Sodium (Porcine) (Heparin Flush) 2 ml IV Q12 [facility] Last Admin: 12/09/17 10:16 Dose: Not Given Hydromorphone HCl (Dilaudid) 0 mg IV Q4HP PRN PRN Reason: PAIN LEVEL > 6 Last Admin: 12/08/17 20:31 Dose: 0.5 mg Sodium Chloride (Sodium Chloride 0.9%) 250 mls @ 20 mls/hr IV .[id number] [facility] Last Admin: 12/08/17 23:43 Dose: Not Given Metronidazole (Flagyl) 500 mg in 100 mls @ 100 mls/hr IV Q8H [facility] Last Infusion: 12/09/17 07:19 Dose: Infused Norepinephrine Bitartrate 16 (mg/ Sodium Chloride) 250 mls @ 9.37 mls/hr IV Q24HP PRN; Protocol; 10 MCG/MIN PRN Reason: TITRATE TO KEEP MAP > 65 Levothyroxine Sodium (Synthroid) 75 mcg PO ACB [facility] Last Admin: 12/09/17 08:36 Dose: 75 mcg Magnesium Hydroxide (Milk Of Magnesia) 30 ml PO DAILYP PRN PRN Reason: Constipation Last Admin: 12/08/17 13:11 Dose: 30 ml Methylprednisolone Sodium Succinate (Solu-Medrol) 62.5 mg IV Q8 [facility] Last Admin: 12/09/17 05:18 Dose: 62.5 mg Naloxone HCl (Narcan) 0.1 mg IV Q2MIN PRN PRN Reason: Opiate Reversal Ondansetron HCl (Zofran) 4 mg IV Q4HP PRN PRN Reason: Nausea And Vomiting Oseltamivir Phosphate (Tamiflu) 75 mg PO DAILY [facility] Last Admin: 12/09/17 08:37 Dose: 75 mg Polysaccharide Iron Complex (Ferrex 150) 150 mg PO DAILY [facility] Last Admin: 12/09/17 08:38 Dose: 150 mg Potassium Chloride (Kdur) 10 meq PO QAMCC [facility] Last Admin: 12/09/17 08:36 Dose: 10 meq Ropinirole HCl (Requip) 3 mg PO QID [facility] Last Admin: 12/09/17 12:32 Dose: 3 mg Sodium Chloride (Saline Flush) 10 ml IV UD PRN PRN Reason: FLUSH Sodium Chloride (Saline Flush) 10 ml IV Q12 [facility] Last Admin: 12/09/17 10:16 Dose: Not Given Medical - PN: A/P - Time Spent With Patient Total time spent is greater than 50% in coordination of care (as documented) at patient's floor/unit and/or counseling patient: - Narrative A/P Narrative: A/P Septic Shock : improved, lactic acid normal, bp stable, monitor. Pneumonia, : Patient family has h/o influenza, treat with IV vanco, rocephin and flagyl. Vanco for mrsa coverage given possibity of flu, and given high risk of aspiration flagyl added. X ray noted, microbiology neg so far. d/c flagyl as low risk of aspiration. Influenza: Flu test is neg, but given family member has flu positive, will treat empherically with tamiflu Acute renal failure: creat is improving, its 1.2 today, d/c IVF given possible congestion on X Ray. Parkinsons disease: Resume home meds, hopefully will regain some motor functions. Weakness/ Debility: due to infection, OT/PT and ST eval and treat Patient has a high risk of mortality, patient family aware on the condition, and they verbalize understanding DVT hep sq Diet Dysphagia diet, ST eval DNR code status. Medical - PN: Qual - VTE Deep Vein Thrombosis/Pulmonary Embolism Present on Admission: No
[2017-12-09] MEDS: 0.9 % SODIUM CHLORIDE 250 ML IV SCH (13:19)
[2017-12-09] MEDS: HYDROcodone/APAP 5/325MG TABLET PO PRN (21:18)
[2017-12-10] MEDS: 0.9 % SODIUM CHLORIDE 250 ML IV SCH ×3 (02:41→23:48)
[2017-12-10] MEDS: IPRATROPIUM/ALBUTEROL 3 ML AMPUL.NEB NEB SCH ×4 (02:46→19:11)
[2017-12-10] MEDS: methylPREDNISolone SOD SUCC 125 MG/2 ML VIAL IV SCH ×4 (02:46→21:35)
[2017-12-10 05:35] LABS: Basophils # (Auto) 0 K/mcL (0.0-0.3); Basophils % (Auto) 0.1 % (0.0-2.0); Eosinophils # (Auto) 0 K/mcL (0.0-0.7); Eosinophils % (Auto) 0 % (0.0-7.0); Granulocytes % (Auto) 89.1 % (38.0-78.0); Lymphocytes # (Auto) 0.7 K/mcL (1.5-4.8); Lymphocytes % (Auto) 7.9 % (15.5-49.0); Mean Cell Volume 88.6 fL (80.0-100.0); Mean Corpuscular HGB Conc 32.6 g/dL (31.0-36.0); Mean Corpuscular Hemoglobin 28.9 pg (26.0-34.0); Monocytes # (Auto) 0.3 K/mcL (0.1-0.9); Monocytes % (Auto) 2.9 % (1.0-12.0); Platelet Count 383 K/mcL (140-440); RBC 4.08 M/mcL (4.00-5.20)
[2017-12-10 06:12] LABS: ALT/SGPT < 5 U/l (0-40); Albumin 3.4 gm/dL (3.2-5.2); Alkaline Phosphatase 91 U/L (39-117); Bilirubin,Direct < 0.2 mg/dL (0.0-0.3); Blood Urea Nitrogen 18 mg/dl (8-23); Gamma Glutamyl Transpeptidase 43 U/L (5-36); Uric Acid 5.9 mg/dL (2.5-8.0)
[2017-12-10] MEDS: 0.9 % SODIUM CHLORIDE 10 ML SYRINGE IV SCH ×4 (07:09→21:34)
[2017-12-10] MEDS: HYDROcodone/APAP 5/325MG TABLET PO PRN ×3 (07:09→21:42)
[2017-12-10] MEDS: LEVOTHYROXINE 75 MCG TABLET PO SCH (07:11)
[2017-12-10] MEDS: BUDESONIDE 0.5 MG/2 ML AMPUL.NEB NEB SCH (07:20)
[2017-12-10] MEDS: IRON POLYSACCHARIDE COMPLEX 150 MG CAPSULE PO SCH (09:15)
[2017-12-10] MEDS: CARBIDOPA/LEVODOPA 25/100 TABLET PO SCH ×4 (09:16→21:34)
[2017-12-10] MEDS: OSELTAMIVIR PHOSPHATE 75 MG CAPSULE PO SCH (09:16)
[2017-12-10] MEDS: rOPINIRole 1 MG TABLET PO SCH ×4 (09:17→21:33)
[2017-12-10] MEDS: FAMOTIDINE/PF 20 MG/2 ML VIAL IV SCH ×2 (09:17→21:33)
[2017-12-10] MEDS: HEPARIN 5,000 UNIT/ML VIAL SQ SCH ×2 (09:19→21:33)
[2017-12-10] MEDS: POTASSIUM CHLORIDE 10 MEQ TABLET PO SCH (09:28)
[2017-12-10] MEDS: cefTRIAXone 2 GM VIAL IV SCH (09:29)
--- NOTE | 2017-12-10 10:11 | Internal Med Progress Note ---
Medical - PN: Subj Patient information: Note initiated : 12/10/17 at 10:04 am Service Date, if different from initiated Date: [] Patient: Sanna Adame 79 y/o F admitted on 12/07/17 for Increase Weakness, Moist Cough, Fever/Sepsis, PNA. Chief Complaint: [] Interval history: Ms. Adame is a 79 year old Female with h/o parkinsons disease, hypothyroidism presents to the ER, she has been living with her family at home and over the last 10 days has been progressively getting worse, the family notes that she has chr sinus issues and cough, but these have been getting worse since last week. Over the last 2 days they have noticed increased cough, which sounded wet cough. Chills and rigors. They have also noted increased weakness and poor appetite and decreased level of activity. The patient also possibly had a fever. She was therefore brought to the ER for further management. The patient has Parkinson disease which has been progressively getting worse, the patient is predominancy in the bed and sits in recliner, uses diaper, is hard of hearing, uses the toilet. The patient can let her needs be known. She has difficulty in swallowing and needs meds to be crushed in apple sauce to be fed In the ER the patient on presentation had fever, Chest x ray suggestive of pna, she had leucocytosis, elevated lactic acid at 2.5, she was hypoxic requiring 4L oxyegn (uses 2-3 at home?), she is tachypneic with RR 30, bp was low systolic dropped to 80 systolic, but improved with fluids in the 100s The patients has been daignosed with influenza a and is under treatment , pt is neg for same, patient daughter and present at the bed side, and the is DNR as per advance directive, but ok for fluids, pressors, bipap if needed. Patient will be admitted to tele for further management. poor iv access noted, plan to get PICC line Dec 08 patient seen examined, non verbal still no acute overnight issues wbc still high, but lactic acid is now normal, hr stable, breathing better On IV antibiotics which will continue for now. dec 09 Patient seen examined Patient confused overnight, removed her picc line, new peripheral line placed patient wbc improving chemistry stable x ray shows Nonspecific interstitial lung disease bilaterally. This could be due to inflammation, fibrosis or combination of the two. This is less likely due to congestive heart failure since the heart is now relatively small. 12/10-patient doing well. No overnight events. Slightly anxious this morning but improved white countto 9.4 from 14.9.lactic acid normalized. Creatinine down to 1.1 from 1.5.stable hemodynamics. On 4 L oxygen. This morning patient is able to respond to verbal commands. She cannot talk in full sentences but answers in 1 word. Foleys draining clear urine. Continue physical therapy anticipate SNF transfer if continues to improve clinically - Constitutional Vitals: Vital Signs Temp Pulse Resp BP Pulse Ox 98.0 F 98 H 28 H 152/66 92 12/10/17 07:00 12/10/17 08:31 12/10/17 08:31 12/10/17 07:00 12/10/17 08:31 Period Temp Pulse Resp BP Sys/Gonzalez Pulse Ox Last 24 Hr 98.0 F-99.6 F 73-98 20-28 135-154/55-66 91-98 Intake and Output 12/09/17 12/10/17 12/10/17 21:59 05:59 13:59 Intake Total 120 / 120 0 / 0 Output Total 750 / 750 800 / 800 Balance -630 / -630 -800 / -800 Weight 157 lb Intake & Output: Intake & Output 12/09/17 12/10/17 12/10/17 21:59 05:59 13:59 Intake Total 120 / 120 0 / 0 Output Total 750 / 750 800 / 800 Balance -630 / -630 -800 / -800 Weight 157 lb Intake: Oral 120 / 120 0 / 0 Output: Urine Catheter Amount 750 / 750 800 / 800 Other: Meal Breakfast Percent of Meal Consumed 100% Feeding Ability Total Assistance # Bowel Movements 1 General appearance: no acute distress Exam: on 4 L oxygen Fatigued and lethargic no anxiety Foleys draining clear urine nonlabored breathing Medical - PN: Obj Da - Labs CBC & Chem 7: 12/10/17 04:38 12/10/17 04:38 Labs: Abnormal Lab Results 12/10/17 12/10/17 12/09/17 04:38 04:38 04:00 WBC RBC Hgb 11.8 L Hct Gran % 89.1 H Lymph % (Auto) 7.9 L Gran # 8.4 H Lymph # (Auto) 0.7 L Seg Neutrophils % Lymphocytes % VBG Lactic Acid Carbon Dioxide 20 L 19 L Anion Gap Creatinine Glucose 129 H 191 H Calcium 8.5 L 8.4 L Phosphorus 2.6 L GGT 43 H 39 H AST 38 H 45 H Lactate Dehydrogenase 255 H Albumin 3.1 L Albumin/Globulin Ratio 0.9 L Urine Ketones Hyaline Casts 12/09/17 12/08/17 12/08/17 04:00 04:00 04:00 WBC 12.4 H 14.3 H RBC 3.67 L 3.53 L Hgb 10.7 L 10.3 L Hct 33.0 L 31.6 L Gran % 94.0 H 96.5 H Lymph % (Auto) 4.3 L 2.2 L Gran # 11.7 H 13.8 H Lymph # (Auto) 0.5 L 0.3 L Seg Neutrophils % Lymphocytes % VBG Lactic Acid Carbon Dioxide 18 L Anion Gap Creatinine 1.2 H Glucose 214 H Calcium 8.0 L Phosphorus GGT 38 H AST 54 H Lactate Dehydrogenase Albumin 3.1 L Albumin/Globulin Ratio 0.9 L Urine Ketones Hyaline Casts 12/07/17 12/07/17 12/07/17 21:55 18:00 16:15 WBC RBC Hgb Hct Gran % Lymph % (Auto) Gran # Lymph # (Auto) Seg Neutrophils % Lymphocytes % VBG Lactic Acid 2.4 H 2.5 H Carbon Dioxide Anion Gap Creatinine Glucose Calcium Phosphorus GGT AST Lactate Dehydrogenase Albumin Albumin/Globulin Ratio Urine Ketones 5/tr A Hyaline Casts 4 H 12/07/17 12/07/17 16:15 16:15 WBC 14.9 H RBC 3.93 L Hgb 11.5 L Hct 34.5 L Gran % Lymph % (Auto) Gran # Lymph # (Auto) Seg Neutrophils % 93 H Lymphocytes % 2 L VBG Lactic Acid Carbon Dioxide 19 L Anion Gap 18.0 H Creatinine 1.5 H Glucose 170 H Calcium Phosphorus GGT AST 76 H Lactate Dehydrogenase Albumin Albumin/Globulin Ratio Urine Ketones Hyaline Casts Meds: Medications Acetaminophen (Tylenol) 650 mg PO Q6HP PRN PRN Reason: PAIN/FEVER > 101 Hydrocodone Bitart/Acetaminophen ([place] 5/325mg) 1 tab PO QIDP PRN PRN Reason: Pain Last Admin: 12/10/17 07:09 Dose: 1 tab Albuterol/Ipratropium (Duoneb) 3 ml NEB Q6HRT [facility] Last Admin: 12/10/17 07:20 Dose: 3 ml Budesonide (Pulmicort) 0.5 mg NEB DAILY [facility] Last Admin: 12/10/17 07:20 Dose: 0.5 mg Carbidopa/Levodopa (Sinemet 25/100) 1 tab PO QID [facility] Last Admin: 12/10/17 09:16 Dose: 1 tab Ceftriaxone Sodium (Rocephin) 2 gm IV DAILY [facility] Last Admin: 12/10/17 09:29 Dose: 2 gm Famotidine (Pepcid) 20 mg IV Q12 [facility] Last Admin: 12/10/17 09:17 Dose: 20 mg Gabapentin (Neurontin) 100 mg PO QIDP [facility] Heparin Sodium (Porcine) (Heparin) 5,000 unit SQ Q12 [facility] Last Admin: 12/10/17 09:19 Dose: 5,000 unit Hydromorphone HCl (Dilaudid) 0 mg IV Q4HP PRN PRN Reason: PAIN LEVEL > 6 Last Admin: 12/08/17 20:31 Dose: 0.5 mg Sodium Chloride (Sodium Chloride 0.9%) 250 mls @ 20 mls/hr IV .[id number] [facility] Last Admin: 12/10/17 02:41 Dose: Not Given Norepinephrine Bitartrate 16 (mg/ Sodium Chloride) 250 mls @ 9.37 mls/hr IV Q24HP PRN; Protocol; 10 MCG/MIN PRN Reason: TITRATE TO KEEP MAP > 65 Levothyroxine Sodium (Synthroid) 75 mcg PO ACB [facility] Last Admin: 12/10/17 07:11 Dose: 75 mcg Magnesium Hydroxide (Milk Of Magnesia) 30 ml PO DAILYP PRN PRN Reason: Constipation Last Admin: 12/08/17 13:11 Dose: 30 ml Methylprednisolone Sodium Succinate (Solu-Medrol) 62.5 mg IV Q8 [facility] Last Admin: 12/10/17 09:27 Dose: 62.5 mg Naloxone HCl (Narcan) 0.1 mg IV Q2MIN PRN PRN Reason: Opiate Reversal Ondansetron HCl (Zofran) 4 mg IV Q4HP PRN PRN Reason: Nausea And Vomiting Oseltamivir Phosphate (Tamiflu) 75 mg PO DAILY [facility] Last Admin: 12/10/17 09:16 Dose: 75 mg Polysaccharide Iron Complex (Ferrex 150) 150 mg PO DAILY [facility] Last Admin: 12/10/17 09:15 Dose: 150 mg Potassium Chloride (Kdur) 10 meq PO QAMCC [facility] Last Admin: 12/10/17 09:28 Dose: 10 meq Ropinirole HCl (Requip) 3 mg PO QID [facility] Last Admin: 12/10/17 09:17 Dose: 3 mg Sodium Chloride (Saline Flush) 10 ml IV UD PRN PRN Reason: FLUSH Sodium Chloride (Saline Flush) 10 ml IV Q12 [facility] Last Admin: 12/10/17 09:30 Dose: 10 ml Medical - PN: A/P - Time Spent With Patient Total time spent is greater than 50% in coordination of care (as documented) at patient's floor/unit and/or counseling patient: 25 - 35 minutes - Narrative A/P Narrative: A/P * Septic Shock :clinically resolved. improved, lactic acid normal, bp stable, monitor. white count down from 14.9-9 * community-acquired Pneumonia : Patient family has h/o influenza, ongoing treatment IVrocephin. Vanco and Flagyl discontinued. * Influenza:treat empherically with tamiflu * Acute renal failure: secondary to sepsis end organ dysfunction-creatinine at 1.1 down from 1.5 * Parkinsons disease: continue home meds/physical therapy * Weakness/ Debility: continue OT/PT and ST eval and treat * prophylaxis subcutaneous heparin * Dysphagia diet * DNR Plan * Continue Rocephin/Tamiflu * Pre-existing medical condition management as above * PT OT * Anticipate SNF transfer Medical - PN: Qual - VTE Deep Vein Thrombosis/Pulmonary Embolism Present on Admission: No
[2017-12-11] MEDS: IPRATROPIUM/ALBUTEROL 3 ML AMPUL.NEB NEB SCH ×4 (03:28→19:14)
[2017-12-11] MEDS: methylPREDNISolone SOD SUCC 125 MG/2 ML VIAL IV SCH (05:21)
[2017-12-11 07:09] LABS: Basophils # (Auto) 0 K/mcL (0.0-0.3); Basophils % (Auto) 0 % (0.0-2.0); Eosinophils # (Auto) 0 K/mcL (0.0-0.7); Eosinophils % (Auto) 0.1 % (0.0-7.0); Granulocytes % (Auto) 85.8 % (38.0-78.0); Lymphocytes # (Auto) 0.7 K/mcL (1.5-4.8); Lymphocytes % (Auto) 9.7 % (15.5-49.0); Mean Cell Volume 88.4 fL (80.0-100.0); Mean Corpuscular HGB Conc 32.5 g/dL (31.0-36.0); Mean Corpuscular Hemoglobin 28.8 pg (26.0-34.0); Monocytes # (Auto) 0.3 K/mcL (0.1-0.9); Monocytes % (Auto) 4.4 % (1.0-12.0); Platelet Count 394 K/mcL (140-440); RBC 4.25 M/mcL (4.00-5.20); Red Cell Distribution Width 13.9 % (11.5-14.5)
[2017-12-11] MEDS: LEVOTHYROXINE 75 MCG TABLET PO SCH (07:31)
[2017-12-11 07:49] LABS: ALT/SGPT 8 U/l (0-40); Albumin 3.4 gm/dL (3.2-5.2); Alkaline Phosphatase 85 U/L (39-117); Bilirubin,Direct < 0.2 mg/dL (0.0-0.3); Blood Urea Nitrogen 23 mg/dl (8-23); Gamma Glutamyl Transpeptidase 61 U/L (5-36); Uric Acid 5.1 mg/dL (2.5-8.0)
[2017-12-11] MEDS: BUDESONIDE 0.5 MG/2 ML AMPUL.NEB NEB SCH (08:00)
[2017-12-11] MEDS: HEPARIN 5,000 UNIT/ML VIAL SQ SCH ×2 (08:22→19:45)
[2017-12-11] MEDS: 0.9 % SODIUM CHLORIDE 10 ML SYRINGE IV SCH (08:23)
[2017-12-11] MEDS: cefTRIAXone 2 GM VIAL IV SCH ×2 (08:23→08:34)
[2017-12-11] MEDS: FAMOTIDINE/PF 20 MG/2 ML VIAL IV SCH ×2 (08:23→08:34)
[2017-12-11] MEDS: IRON POLYSACCHARIDE COMPLEX 150 MG CAPSULE PO SCH (08:24)
[2017-12-11] MEDS: CARBIDOPA/LEVODOPA 25/100 TABLET PO SCH ×4 (08:24→19:47)
[2017-12-11] MEDS: OSELTAMIVIR PHOSPHATE 75 MG CAPSULE PO SCH (08:24)
[2017-12-11] MEDS: POTASSIUM CHLORIDE 10 MEQ TABLET PO SCH (08:24)
[2017-12-11] MEDS: rOPINIRole 1 MG TABLET PO SCH ×4 (08:24→19:46)
--- NOTE | 2017-12-11 08:24 | Internal Med Progress Note ---
Medical - PN: Subj Patient information: Note initiated : 12/11/17 at 8:21 am Service Date, if different from initiated Date: [] Patient: Sanna Adame 79 y/o F admitted on 12/07/17 for Increase Weakness, Moist Cough, Fever/Sepsis, PNA. Chief Complaint: [] Interval history: Ms. Adame is a 79 year old Female with h/o parkinsons disease, hypothyroidism presents to the ER, she has been living with her family at home and over the last 10 days has been progressively getting worse, the family notes that she has chr sinus issues and cough, but these have been getting worse since last week. Over the last 2 days they have noticed increased cough, which sounded wet cough. Chills and rigors. They have also noted increased weakness and poor appetite and decreased level of activity. The patient also possibly had a fever. She was therefore brought to the ER for further management. The patient has Parkinson disease which has been progressively getting worse, the patient is predominancy in the bed and sits in recliner, uses diaper, is hard of hearing, uses the toilet. The patient can let her needs be known. She has difficulty in swallowing and needs meds to be crushed in apple sauce to be fed In the ER the patient on presentation had fever, Chest x ray suggestive of pna, she had leucocytosis, elevated lactic acid at 2.5, she was hypoxic requiring 4L oxyegn (uses 2-3 at home?), she is tachypneic with RR 30, bp was low systolic dropped to 80 systolic, but improved with fluids in the 100s The patients has been daignosed with influenza a and is under treatment , pt is neg for same, patient daughter and present at the bed side, and the is DNR as per advance directive, but ok for fluids, pressors, bipap if needed. Patient will be admitted to tele for further management. poor iv access noted, plan to get PICC line Dec 08 patient seen examined, non verbal still no acute overnight issues wbc still high, but lactic acid is now normal, hr stable, breathing better On IV antibiotics which will continue for now. dec 09 Patient seen examined Patient confused overnight, removed her picc line, new peripheral line placed patient wbc improving chemistry stable x ray shows Nonspecific interstitial lung disease bilaterally. This could be due to inflammation, fibrosis or combination of the two. This is less likely due to congestive heart failure since the heart is now relatively small. 12/10-patient doing well. No overnight events. Slightly anxious this morning but improved white countto 9.4 from 14.9.lactic acid normalized. Creatinine down to 1.1 from 1.5.stable hemodynamics. On 4 L oxygen. This morning patient is able to respond to verbal commands. She cannot talk in full sentences but answers in 1 word. [place]ole[place] draining clear urine. Continue physical therapy anticipate SNF transfer if continues to improve clinically 12/11- atient on baseline oxygen between 2 and 4 L. no overnight events. however persistent fatigue and lethargic and unable to get out of bed. Appears severely deconditioned. Ongoing physical therapy. Responding in 1 word answers. No fever chills. No concerns expressed the nursing staff. No family at bedside. white count downtrending now at 6.7. creatinine down to 1 from 1.5 on admission. - Constitutional Vitals: Vital Signs Temp Pulse Resp BP Pulse Ox 98.5 F 68 24 H 130/70 90 12/11/17 07:32 12/11/17 08:00 12/11/17 08:00 12/11/17 07:32 12/11/17 07:32 Period Temp Pulse Resp BP Sys/Gonzalez Pulse Ox Last 24 Hr 97.8 F-99.0 F 68-98 18-28 130-155/57-70 90-96 Intake and Output 12/10/17 12/11/17 12/11/17 21:59 05:59 13:59 Intake Total 120 / 120 200 / 200 Output Total 525 / 525 Balance -405 / -405 200 / 200 Weight 158 lb 8 oz Intake & Output: Intake & Output 12/10/17 12/11/17 12/11/17 21:59 05:59 13:59 Intake Total 120 / 120 200 / 200 Output Total 525 / 525 Balance -405 / -405 200 / 200 Weight 158 lb 8 oz Intake: Oral 120 / 120 200 / 200 Output: Urine Catheter Amount 525 / 525 Other: Meal Dinner Percent of Meal Consumed 50% Feeding Ability Total Assistance General appearance: cooperative, no acute distress Exam: alert, no anxiety Responding to verbal commands on 2-4 L oxygen Nonlabored breathing Nondistressed Medical - PN: Obj Da - Labs CBC & Chem 7: 12/11/17 04:26 12/11/17 04:26 Labs: Abnormal Lab Results 12/11/17 12/11/17 12/10/17 04:26 04:26 04:38 WBC RBC Hgb Hct Gran % 85.8 H Lymph % (Auto) 9.7 L Gran # Lymph # (Auto) 0.7 L Carbon Dioxide 19 L 20 L Glucose 159 H 129 H Calcium 8.5 L 8.5 L Phosphorus GGT 61 H 43 H AST 38 H Lactate Dehydrogenase 276 H 255 H Albumin Albumin/Globulin Ratio Triglycerides 176 H 12/10/17 12/09/17 12/09/17 04:38 04:00 04:00 WBC 12.4 H RBC 3.67 L Hgb 11.8 L 10.7 L Hct 33.0 L Gran % 89.1 H 94.0 H Lymph % (Auto) 7.9 L 4.3 L Gran # 8.4 H 11.7 H Lymph # (Auto) 0.7 L 0.5 L Carbon Dioxide 19 L Glucose 191 H Calcium 8.4 L Phosphorus 2.6 L GGT 39 H AST 45 H Lactate Dehydrogenase Albumin 3.1 L Albumin/Globulin Ratio 0.9 L Triglycerides Meds: Medications Acetaminophen (Tylenol) 650 mg PO Q6HP PRN PRN Reason: PAIN/FEVER > 101 Hydrocodone Bitart/Acetaminophen (Wallace 5/325mg) 1 tab PO QIDP PRN PRN Reason: Pain Last Admin: 12/10/17 21:42 Dose: 1 tab Albuterol/Ipratropium (Duoneb) 3 ml NEB Q6HRT [facility] Last Admin: 12/11/17 08:00 Dose: 3 ml Budesonide (Pulmicort) 0.5 mg NEB DAILY [facility] Last Admin: 12/11/17 08:00 Dose: 0.5 mg Carbidopa/Levodopa (Sinemet 25/100) 1 tab PO QID [facility] Last Admin: 12/10/17 21:34 Dose: 1 tab Ceftriaxone Sodium (Rocephin) 2 gm IV DAILY [facility] Last Admin: 12/10/17 09:29 Dose: 2 gm Famotidine (Pepcid) 20 mg IV Q12 [facility] Last Admin: 12/10/17 21:33 Dose: 20 mg Gabapentin (Neurontin) 100 mg PO QIDP [facility] Heparin Sodium (Porcine) (Heparin) 5,000 unit SQ Q12 [facility] Last Admin: 12/10/17 21:33 Dose: 5,000 unit Hydromorphone HCl (Dilaudid) 0 mg IV Q4HP PRN PRN Reason: PAIN LEVEL > 6 Last Admin: 12/08/17 20:31 Dose: 0.5 mg Sodium Chloride (Sodium Chloride 0.9%) 250 mls @ 20 mls/hr IV .[id number] [facility] Last Admin: 12/10/17 23:48 Dose: Not Given Norepinephrine Bitartrate 16 (mg/ Sodium Chloride) 250 mls @ 9.37 mls/hr IV Q24HP PRN; Protocol; 10 MCG/MIN PRN Reason: TITRATE TO KEEP MAP > 65 Levothyroxine Sodium (Synthroid) 75 mcg PO ACB [facility] Last Admin: 12/11/17 07:31 Dose: 75 mcg Magnesium Hydroxide (Milk Of Magnesia) 30 ml PO DAILYP PRN PRN Reason: Constipation Last Admin: 12/08/17 13:11 Dose: 30 ml Methylprednisolone Sodium Succinate (Solu-Medrol) 62.5 mg IV Q8 [facility] Last Admin: 12/11/17 05:21 Dose: 62.5 mg Naloxone HCl (Narcan) 0.1 mg IV Q2MIN PRN PRN Reason: Opiate Reversal Ondansetron HCl (Zofran) 4 mg IV Q4HP PRN PRN Reason: Nausea And Vomiting Oseltamivir Phosphate (Tamiflu) 75 mg PO DAILY [facility] Last Admin: 12/10/17 09:16 Dose: 75 mg Polysaccharide Iron Complex (Ferrex 150) 150 mg PO DAILY [facility] Last Admin: 12/10/17 09:15 Dose: 150 mg Potassium Chloride (Kdur) 10 meq PO QAMCC [facility] Last Admin: 12/10/17 09:28 Dose: 10 meq Ropinirole HCl (Requip) 3 mg PO QID [facility] Last Admin: 12/10/17 21:33 Dose: 3 mg Sodium Chloride (Saline Flush) 10 ml IV UD PRN PRN Reason: FLUSH Sodium Chloride (Saline Flush) 10 ml IV Q12 [facility] Last Admin: 12/10/17 21:34 Dose: 10 ml Medical - PN: A/P - Time Spent With Patient Total time spent is greater than 50% in coordination of care (as documented) at patient's floor/unit and/or counseling patient: 25 - 35 minutes - Narrative A/P Narrative: A/P * community-acquired Pneumonia superimposed on influenza: Clinical improvement noted with oxygen needs at baseline. Currently on Rocephin. * Septic Shock :clinically resolved. lactic acid normalized, hemodynamics stable.white count down to 6.7 from 14.9 * Influenza-on Tamiflu * Acute renal failure: secondary to sepsis end organ dysfunction.clinically resolved creatinine at 1. * Parkinsons disease: stable on home meds. Continue PT OT * Weakness/ Debility: continue OT/PT and ST eval and treat * prophylaxis - heparin * continue Dysphagia diet * DNR Plan * Continue Rocephin/Tamiflu. * Pre-existing medical condition management as above * PT OT * Anticipate SNF transfer in 24-48 hours pending clinical improvement Medical - PN: Qual - VTE Deep Vein Thrombosis/Pulmonary Embolism Present on Admission: No
[2017-12-11] MEDS ORDERED: LEVOFLOXACIN 500 MG TABLET PO SCH (09:00)
[2017-12-11] MEDS: 0.9 % SODIUM CHLORIDE 250 ML IV SCH (13:13)
[2017-12-11] MEDS ORDERED: ACETAMINOPHEN 325 MG TABLET PO PRN (17:22)
[2017-12-11] MEDS ORDERED: MAGNESIUM HYDROXIDE 30 ML ORAL.SUSP PO PRN (17:22)
[2017-12-11] MEDS ORDERED: GABAPENTIN 100 MG CAPSULE PO SCH (17:22)
[2017-12-11] MEDS ORDERED: HYDROmorphone 2 MG/ML VIAL IV PRN (17:22)
[2017-12-11] MEDS ORDERED: HYDROcodone/APAP 5/325MG TABLET PO PRN (17:22)
[2017-12-11] MEDS ORDERED: NALOXONE HCL 0.4 MG/ML VIAL IV PRN (17:22)
[2017-12-11] MEDS: FAMOTIDINE 20 MG TABLET PO SCH (19:47)
[2017-12-11] MEDS ORDERED: FAMOTIDINE 20 MG TABLET PO SCH (21:00)
[2017-12-12] MEDS: IPRATROPIUM/ALBUTEROL 3 ML AMPUL.NEB NEB SCH ×2 (00:12→07:34)
[2017-12-12 05:57] LABS: Basophils # (Auto) 0 K/mcL (0.0-0.3); Basophils % (Auto) 0.3 % (0.0-2.0); Eosinophils # (Auto) 0.1 K/mcL (0.0-0.7); Eosinophils % (Auto) 0.9 % (0.0-7.0); Granulocytes % (Auto) 69.4 % (38.0-78.0); Lymphocytes # (Auto) 1.6 K/mcL (1.5-4.8); Lymphocytes % (Auto) 17.2 % (15.5-49.0); Mean Cell Volume 87.9 fL (80.0-100.0); Mean Corpuscular HGB Conc 32.9 g/dL (31.0-36.0); Mean Corpuscular Hemoglobin 28.9 pg (26.0-34.0); Monocytes # (Auto) 1.1 K/mcL (0.1-0.9); Monocytes % (Auto) 12.2 % (1.0-12.0); Platelet Count 389 K/mcL (140-440); RBC 4.16 M/mcL (4.00-5.20); Red Cell Distribution Width 14.2 % (11.5-14.5)
[2017-12-12 06:17] LABS: ALT/SGPT 6 U/l (0-40); Albumin 3.6 gm/dL (3.2-5.2); Albumin/Globulin Ratio 1.2 (1.0-2.3); Alkaline Phosphatase 79 U/L (39-117); Bilirubin,Direct < 0.2 mg/dL (0.0-0.3); Blood Urea Nitrogen 25 mg/dl (8-23); Gamma Glutamyl Transpeptidase 73 U/L (5-36); Uric Acid 5.1 mg/dL (2.5-8.0)
[2017-12-12] MEDS ORDERED: LEVOTHYROXINE 75 MCG TABLET PO SCH (07:30)
[2017-12-12] MEDS ORDERED: POTASSIUM CHLORIDE 10 MEQ TABLET PO SCH (08:00)
[2017-12-12] MEDS ORDERED: BUDESONIDE 0.5 MG/2 ML AMPUL.NEB NEB SCH (09:00)
[2017-12-12] MEDS ORDERED: OSELTAMIVIR PHOSPHATE 75 MG CAPSULE PO SCH (09:00)
[2017-12-12] MEDS ORDERED: LEVOFLOXACIN 500 MG TABLET PO SCH (09:00)
[2017-12-12] MEDS ORDERED: IRON POLYSACCHARIDE COMPLEX 150 MG CAPSULE PO SCH (09:00)
[2017-12-12] MEDS: rOPINIRole 1 MG TABLET PO SCH ×2 (09:28→12:06)
[2017-12-12] MEDS: CARBIDOPA/LEVODOPA 25/100 TABLET PO SCH ×2 (09:29→12:05)
[2017-12-12] MEDS: FAMOTIDINE 20 MG TABLET PO SCH (09:29)
[2017-12-12] MEDS: HEPARIN 5,000 UNIT/ML VIAL SQ SCH (09:29)
--- NOTE | 2017-12-12 10:50 | Discharge Summary ---
Medical - DS: Prov Patient information: Note initiated : 12/12/17 at 10:43 am Service Date, if different from initiated Date: [] Patient: Sanna Adame 79 y/o F admitted on 12/07/17 for Increase Weakness, Moist Cough, Fever/Sepsis, PNA. Date of admission: 12/07/17 21:40 Discharge date: 12/12/17 Primary care physician: Rubén Saunders Admitting clinician: Vanessa Guardado Consults: 12/07/17 18:16 Consult to Physician [CONS] Stat Comment: Consulting Provider: Vanessa Guardado Reason For Exam: Physician to Consult 12/08/17 11:12 Consult to Physician [CONS] Routine Comment: Consulting Provider: [facility] Reason For Exam: Physician to Consult Discharging clinician: Monik Napier Medical - DS: Meds - Discharge Medications Prescriptions: HYDROcodone/IBUPROFEN [Hydrocodone-Ibuprofen 7.5-200] 0.5 tab PO QIDP #20 tab Levofloxacin [Levaquin] 500 mg PO DAILY #2 tab Active and Home Medications: Home Medications Budesonide [Pulmicort] 0.5 mg NEB DAILY 12/07/17 [History Confirmed 12/07/17 Last Taken Unknown] Carbidopa/Levodopa [Sinemet 25-100 mg Tablet] 2 each PO QIDP 12/07/17 [History Confirmed 12/07/17 Last Taken Unknown] Furosemide [Lasix] 20 mg PO DAILY 12/07/17 [History Confirmed 12/07/17 Last Taken Unknown] Gabapentin [Neurontin] 100 mg PO QIDP 12/07/17 [History Confirmed 12/07/17 Last Taken Unknown] HYDROcodone/IBUPROFEN [Hydrocodone-Ibuprofen 7.5-200] 0.5 tablet PO QIDP [History Confirmed 12/07/17 Last Taken Unknown] Iron Ps Cmplx/Vit B12/FA [Poly-Iron 150 Forte Capsule] 1 each PO DAILY 12/07/17 [History Confirmed 12/07/17 Last Taken Unknown] Levothyroxine [Synthroid] 75 mcg PO DAILY 12/07/17 [History Confirmed 12/07/17 Last Taken Unknown] Naproxen Sodium [Naprelan] 250 mg PO DAILY 12/07/17 [History Confirmed 12/07/17 Last Taken Unknown] Omeprazole [PriLOSEC] 20 mg PO DAILY 12/07/17 [History Confirmed 12/07/17 Last Taken Unknown] Potassium Chloride [Klor-Con Sprinkle] 10 meq PO DAILY 12/07/17 [History Confirmed 12/07/17 Last Taken Unknown] rOPINIRole HCL [Requip] 3 mg PO QIDP 12/07/17 [History Confirmed 12/07/17 Last Taken Unknown] Medical - DS: Hosp Hospital course: Ms. Adame is a 79 year old Female with h/o Parkinson disease, hypothyroidism presents to the ER, she has been living with her family at home and over the last 10 days has been progressively getting worse, the family notes that she has chr sinus issues and cough, but these have been getting worse since last week. Over the last 2 days they have noticed increased cough, which sounded wet cough. Chills and rigors. They have also noted increased weakness and poor appetite and decreased level of activity. The patient also possibly had a fever. She was therefore brought to the ER for further management. The patient has Parkinson disease which has been progressively getting worse, the patient is predominancy in the bed and sits in recliner, uses diaper, is hard of hearing, uses the toilet. The patient can let her needs be known. She has difficulty in swallowing and needs meds to be crushed in apple sauce to be fed In the ER the patient on presentation had fever, Chest x ray suggestive of pna, she had leucocytosis, elevated lactic acid at 2.5, she was hypoxic requiring 4L oxyegn (uses 2-3 at home?), she is tachypneic with RR 30, bp was low systolic dropped to 80 systolic, but improved with fluids in the 100s Patient will be admitted to [facility] for further management. Dec 08 patient seen examined, non verbal still no acute overnight issues wbc still high, but lactic acid is now normal, hr stable, breathing better On IV antibiotics which will continue for now. dec 09 Patient seen examined Patient confused overnight, removed her picc line, new peripheral line placed patient wbc improving chemistry stable X ray shows: "Nonspecific interstitial lung disease bilaterally. This could be due to inflammation, fibrosis or combination of the two. This is less likely due to congestive heart failure since the heart is now relatively small." 12/10-patient doing well. No overnight events. Slightly anxious this morning but improved white count to 9.4 from 14.9. Lactic acid normalized. Creatinine down to 1.1 from 1.5.stable hemodynamics. On 4 L oxygen. This morning patient is able to respond to verbal commands. She cannot talk in full sentences but answers in 1 word. [place] is draining clear urine. Continue physical therapy anticipate SNF transfer if continues to improve clinically 12/11- atient on baseline oxygen between 2 and 4 L. no overnight events. however persistent fatigue and lethargic and unable to get out of bed. Appears severely deconditioned. Ongoing physical therapy. Responding in 1 word answers. No fever chills. No concerns expressed the nursing staff. No family at bedside. white count downtrending now at 6.7. creatinine down to 1 from 1.5 on admission. 12/12- Remained stable overnight, still quite weak and deconditioned after treatment for influenza and community-acquired pneumonia. We'll required custodial facility, arrangements have been made for transfer today. Discharge diagnosis: Influenza, pneumonia - Time Spent with Patient Total time spent providing and/or coordinating discharge services: Greater than 30 minutes Medical - DS: Exam - Constitutional Vitals: Vital Signs Temp Pulse Pulse Resp BP Pulse Ox 12/12/17 07:59 98.4 F 78 20 145/67 94 12/12/17 07:56 60 22 93 12/12/17 07:50 94 12/12/17 07:35 69 22 12/12/17 03:58 99.1 F H 69 16 155/65 91 12/12/17 00:10 97.8 F 72 18 150/76 92 12/11/17 19:23 99.3 F H 79 20 156/64 94 12/11/17 19:16 72 18 92 12/11/17 18:19 92 12/11/17 16:00 98.6 F 76 18 144/69 91 12/11/17 13:06 68 18 12/11/17 12:00 97.8 F 97 H 20 152/73 90 Intake and Output 12/11/17 12/12/17 12/12/17 21:59 05:59 13:59 Intake Total 250 / 250 Output Total Balance 248 / 248 - Intake: Oral 250 / 250 Output: # of times incontinent of urine Other: Meal Dinner Percent of Meal Consumed 40 # Bowel Movements 1 Weight 149 lb Additional comments: General: Chronically ill-appearing Chest: Few right nasal rhonchi, clears with cough, unlabored Cardiovascular: Regular rate and rhythm Abdomen: Soft, nontender Neuro: Alert, speaks in 1-2 word replies, mild cogwheel rigidity, generally weak Medical - DS: Data Procedures and tests throughout hospitalization: PICC line places for IV access, removed prior to discharge. Labs on day of discharge: Labs from last 24 hours 12/12/17 12/12/17 04:07 04:07 WBC 9.3 RBC 4.16 Hgb 12.0 Hct 36.6 MCV 87.9 MCH 28.9 MCHC 32.9 RDW 14.2 Plt Count 389 MPV 9.1 Gran % 69.4 Lymph % (Auto) 17.2 [place] % (Auto) 12.2 H Eos % (Auto) 0.9 Baso % (Auto) 0.3 Gran # 6.5 Lymph # (Auto) 1.6 [place] # (Auto) 1.1 H Eos # (Auto) 0.1 Baso # (Auto) 0 Sodium 134 Potassium 4.1 Chloride 99 Carbon Dioxide 21 L Anion Gap 14.0 BUN 25 H Creatinine 1.0 GFR Calculation 53 Glucose 106 H Uric Acid 5.1 Calcium 8.4 L Phosphorus 2.5 L Magnesium 2.2 Total Bilirubin 0.3 Direct Bilirubin < 0.2 GGT 73 H AST 35 ALT 6 Alkaline Phosphatase 79 Lactate Dehydrogenase 250 Total Protein 6.7 Albumin 3.6 Globulin 3.1 Albumin/Globulin Ratio 1.2 Triglycerides 230 H Preliminary micro results at discharge 12/07/17 16:35 Blood Culture - Preliminary Blood 12/07/17 16:15 Blood Culture - Preliminary Blood - Imaging and Cardiology Chest x-ray Additional comments: 12/09/17 IMPRESSION: Nonspecific interstitial lung disease bilaterally. This could be due to inflammation, fibrosis or combination of the two. This is less likely due to congestive heart failure since the heart is now relatively small Medical - DS: A/P - Patient/Caregiver Discharge Instructions Activity: increase activity as tolerated Diet: Dysphagia Advanced Other Amb Orders: OT Discharge Order Location: Determined By Patient Physical Therapy at Discharge - General Location: Determined By Patient - Follow up Plan Follow up with: Rubén Saunders ARNP [Primary Care Provider] - (1-2 weeks) Disposition: Xfer SNF Prognosis: Serious Rehab Potential: Serious I certify that the patient requires SNF services: Yes Overall status at discharge: patient is not back to baseline Medical - DS: Qual - VTE Deep Vein Thrombosis/Pulmonary Embolism Present on Admission: No
== END 2017-12-12 13:05 | DRG 871 ==
LOC: ED 15:19 → EDBD 21:40 → ICU 21:40
PROVIDERS: ADMIT Internal Medicine; ATTEND Internal Medicine